=== PATIENT | male | born 1990 | race American Indian/Alaskan Native ===

== ENCOUNTER 2018-11-13 14:41 | Inpatient (IN) | payer MEDICARE ==
[2018-11-13 21:05] LABS: Hemoglobin 6.7 gm/dl (11.8-15.2); Mean Corpuscular HGB Conc 35 % (32-34); Mean Corpuscular Volume 90 fl (84-94); Red Blood Count 2.13 M/mm3 (3.65-5.03)
[2018-11-13 21:10] LABS: Hematocrit 20.1 % (35.5-45.6); Platelet Count 518 K/mm3 (140-440); Red Cell Distribution Width 26.8 % (13.2-15.2)
[2018-11-13] MEDS: MORPHINE IV SCH (21:21)
[2018-11-13 21:27] LABS: % Iron Saturation 43.17 %; Alanine Aminotransferase 12 units/L (7-56); Albumin 4.3 g/dL (3.9-5); BUN/Creatinine Ratio 24; Blood Urea Nitrogen 17 mg/dL (9-20); Calcium 8.5 mg/dL (8.4-10.2); Hemolysis Index 39; Iron 98 ug/dL (49-181); Total Iron Binding Capacity 227 mcg/dL (250-450)
[2018-11-13] MEDS: D5NS 0.2% 1,000 ML IV SCH (22:31)
[2018-11-13 22:44] LABS: Band Neutrophils # (Manual) 0.3 K/mm3; Total Cells Counted 100
[2018-11-13 22:45] LABS: Anisocytosis 3+; Hypochromasia Few; Ovalocytes Few; Sickle Cells 2+; Target Cells 1+
[2018-11-13 22:46] LABS: Platelet Estimate Appears Increased
[2018-11-13] MEDS ORDERED: ZOFRAN IV PRN (23:57)
[2018-11-14] MEDS: MORPHINE IV SCH ×6 (00:08→12:39)
[2018-11-14] MEDS: BENADRYL IV PRN ×2 (00:17→06:37)
[2018-11-14] MEDS: D5NS 0.2% 1,000 ML IV SCH ×2 (04:01→09:33)
[2018-11-14] MEDS ORDERED: TORADOL IV ONE (11:16)
[2018-11-14] MEDS ORDERED: FOLVITE PO SCH (12:00)
[2018-11-14] MEDS ORDERED: MS CONTIN ER PO SCH (12:00)
[2018-11-14] MEDS ORDERED: HYDREA PO SCH (12:00)
[2018-11-14 12:30] VITALS: BP 113/47
--- NOTE | 2018-11-14 14:09 | History and Physical Report ---
History of Present Illness Date of examination: 11/13/18 Date of admission: 11/13/18 19:30 Chief complaint: Sickel cell pain crisis. History of present illness: Patient was seen in the office, examined, and admitted directly into the hospital for sxs control, and management. He was hydrated, and given some morphine, and toradol, and anti emetic. re-examined, he states feels better, but wants to either go home ,or/and go to [facility] later if he wishes. I have encouraged him to stay, and get at least one unit of PRBC, for Hgb of 6.7, but he declined, and stuck to his decision to leave, despite the possible danger clinically with such a low level of blood in lite of Sickel cell crisis. Past History Past Medical History: anemia Social history: no significant social history, lives with family Medications and Allergies Allergies Allergy/AdvReac Type Severity Reaction Status Date / Time ceftriaxone [From Rocephin] AdvReac Anaphylaxis Verified 11/13/18 15:18 Home Medications Medication Instructions Recorded Confirmed Last Taken Type Folic Acid 1 tab PO DAILY 11/14/18 11/14/18 11/14/18 History Hydrea 2 tab PO DAILY 11/14/18 11/14/18 11/14/18 History Ms Contin 30 mg PO DAILY 11/14/18 11/14/18 11/10/18 History oxyCODONE 10 mg PO Q6H PRN 11/14/18 11/14/18 11/12/18 History Active Meds: Active Medications Diphenhydramine HCl (Benadryl) 0 mg IV Q4H PRN PRN Reason: Itching Last Admin: 11/14/18 06:37 Dose: 12.5 mg Documented by: Folic Acid (Folvite) 1 mg PO QDAY [facility] Last Admin: 11/14/18 12:39 Dose: 1 mg Documented by: Hydroxyurea (Hydrea) 1,000 mg PO QDAY [facility] Dextrose/Sodium Chloride (D5ns 0.2%) 1,000 mls @ 175 mls/hr IV DIRECT ILDA Last Admin: 11/14/18 09:33 Dose: 175 mls/hr Documented by: Morphine Sulfate (Morphine) 4 mg IV Q3H [facility] Stop: 11/14/18 16:31 Last Admin: 11/14/18 12:39 Dose: 4 mg Documented by: Morphine Sulfate (Morphine) 4 mg IV Q4H PRN PRN Reason: Pain , Severe (7-10) Morphine Sulfate (Ms Contin Er) 30 mg PO DAILY ILDA Ondansetron HCl (Zofran) 4 mg IV Q8H PRN PRN Reason: Nausea And Vomiting Review of Systems Constitutional: chronic pain Musculoskeletal: low back pain Exam - Constitutional Vitals: Temp Pulse Resp BP Pulse Ox 97.5 F L 58 L 20 113/47 97 11/14/18 11:29 11/14/18 11:29 11/14/18 11:29 11/14/18 11:29 11/14/18 11:29 General appearance: Present: mild distress, well-nourished - EENT Eyes: Present: PERRL ENT: hearing intact, clear oral mucosa - Neck Neck: Present: supple, normal ROM - Respiratory Respiratory effort: normal Respiratory: bilateral: CTA - Cardiovascular Heart Sounds: Present: S1 & S2. Absent: rub, click - Extremities Extremities: pulses symmetrical, No edema Peripheral Pulses: within normal limits - Abdominal General gastrointestinal: Present: soft, non-tender, non-distended, normal bowel sounds Male genitourinary: Present: deferred - Rectal Rectal Exam: deferred - Integumentary Integumentary: Present: clear, warm, dry - Musculoskeletal Musculoskeletal: gait normal, strength equal bilaterally - Psychiatric Psychiatric: appropriate mood/affect, intact judgment & insight - Neurologic Neurologic: CNII-XII intact, moves all extremities Results - Labs CBC & Chem 7: 11/13/18 20:40 11/13/18 20:40 Labs: Abnormal lab results 11/13/18 11/13/18 11/13/18 Range/Units 20:40 20:40 20:40 WBC 15.2 H (4.5-11.0) K/mm3 RBC 2.13 L (3.65-5.03) M/mm3 Hgb 6.7 L (11.8-15.2) gm/dl Hct 20.1 L (35.5-45.6) % MCHC 35 H (32-34) % RDW 26.8 H (13.2-15.2) % Plt Count 518 H (140-440) K/mm3 Eosinophils % (Manual) 6.0 H (0.0-4.3) % Nucleated RBC % 2.0 H (0.0-0.9) % Seg Neutrophils # Man 9.6 H (1.8-7.7) K/mm3 Eosinophils # (Manual) 0.9 H (0.0-0.4) K/mm3 Basophils # (Manual) 0.2 H (0.0-0.1) K/mm3 Percent Retic 15.52 H (0.78-2.58) % Carbon Dioxide 20 L (22-30) mmol/L Creatinine 0.7 L (0.8-1.5) mg/dL Glucose 103 H (75-100) mg/dL TIBC 227 L (250-450) mcg/dL Transferrin 179 L (180-329) mg/dl Total Bilirubin 4.60 H (0.1-1.2) mg/dL AST 56 H (5-40) units/L Assessment and Plan - Patient Problems (1) Acute sickle cell crisis Current Visit: Yes Status: Acute Plan to address problem: Pain control. (2) Anemia Current Visit: Yes Status: Acute Plan to address problem: will need replacement transfusion. (3) Dehydration Current Visit: Yes Status: Acute Plan to address problem: Hydration. (4) Leukocytosis Current Visit: Yes Status: Acute Plan to address problem: will need w/up.with cultures.
--- NOTE | 2018-11-14 14:19 | Discharge Summary ---
Providers - Providers Date of Admission: 11/13/18 19:30 Date of discharge: 11/14/18 Attending physician: SHELBY SPIVEY Primary care physician: SHELBY SPIVEY Hospitalization Reason for admission: Sickel pain crisis. Condition: Fair Hospital course: Patient was admitted 24 hrs ago, treated as per protocol, and as clinically needed, as far as patient would allow. He is asking to be discharged today. Disposition: DC- TO HOME OR SELFCARE - Discharge Diagnoses (1) Acute sickle cell crisis Status: Acute (2) Anemia Status: Acute (3) Dehydration Status: Acute (4) Leukocytosis Status: Acute Core Measure Documentation - Palliative Care Palliative Care/ Comfort Measures: Not Applicable - Core Measures Any of the following diagnoses?: none Exam - Constitutional Vitals: Temp Pulse Resp BP Pulse Ox 97.5 F L 58 L 20 113/47 97 11/14/18 11:29 11/14/18 11:29 11/14/18 11:29 11/14/18 11:29 11/14/18 11:29 General appearance: Present: mild distress, well-nourished - EENT Eyes: Present: PERRL ENT: hearing intact, clear oral mucosa - Neck Neck: Present: supple, normal ROM - Respiratory Respiratory effort: normal Respiratory: bilateral: CTA - Cardiovascular Heart Sounds: Present: S1 & S2. Absent: rub, click - Extremities Extremities: pulses symmetrical, No edema Peripheral Pulses: within normal limits - Abdominal General gastrointestinal: Present: soft, non-tender, non-distended, normal bowel sounds Male genitourinary: Present: deferred - Rectal Rectal Exam: deferred - Integumentary Integumentary: Present: clear, warm, dry - Musculoskeletal Musculoskeletal: gait normal, strength equal bilaterally - Psychiatric Psychiatric: appropriate mood/affect, intact judgment & insight - Neurologic Neurologic: CNII-XII intact, moves all extremities Plan Activity: no restrictions Diet: regular Follow up with: SHELBY SPIVEY DO [Primary Care Provider] - 7 Days
[2018-11-14] MEDS ORDERED: MORPHINE IV PRN (17:03)
== END 2018-11-14 14:40 | disposition home or self-care (01) | DRG 812 ==
LOC: UNDOADMIN 14:41 → 3A 14:41
PROVIDERS: ADMIT Internal Medicine Hematology & Oncology; ATTEND Internal Medicine Hematology & Oncology
DX: D57.00 Hb-SS disease with crisis, unspecified (principal); E86.0 Dehydration; D72.829 Elevated white blood cell count, unspecified
CPT/HCPCS: 36415; 80053; 83550; 85007; 85025; 85045; G0378; J1200; J1885; J2270

== ENCOUNTER 2019-10-22 11:16 | Inpatient (IN) | payer MEDICARE ==
[2019-10-22] MEDS ORDERED: HYDROmorphone 1 MG/1 ML INJ IV PRN (11:50)
[2019-10-22] MEDS ORDERED: oxyCODONE /ACETAMINOPHEN 5-325MG TAB PO PRN ×2 (12:12→21:15)
[2019-10-22 13:32] LABS: Mean Corpuscular HGB Conc 37 % (32-34); Mean Corpuscular Volume 81 fl (84-94); Platelet Count 581 K/mm3 (140-440); Red Blood Count 1.91 M/mm3 (3.65-5.03)
[2019-10-22 13:43] LABS: Hemoglobin 5.7 gm/dl (11.8-15.2)
[2019-10-22 13:44] LABS: Hematocrit 15.5 % (35.5-45.6); Red Cell Distribution Width 20.7 % (13.2-15.2)
[2019-10-22 13:49] LABS: Alanine Aminotransferase 75 units/L (7-56); Albumin 4.7 g/dL (3.9-5); BUN/Creatinine Ratio 32; Blood Urea Nitrogen 29 mg/dL (9-20); Calcium 8.7 mg/dL (8.4-10.2); Hemolysis Index 27
--- NOTE | 2019-10-22 14:17 | XRay Report ---
CHEST 1 VIEW INDICATION / CLINICAL INFORMATION: COUGH. COMPARISON: None available. FINDINGS: SUPPORT DEVICES: None. HEART / MEDIASTINUM: No significant abnormality. LUNGS / PLEURA: No significant pulmonary or pleural abnormality.. No pneumothorax. ADDITIONAL FINDINGS: There is diffuse sclerotic change in the imaged skeleton this includes the ribs, humeri, clavicles and scapula. There is degenerative change in the shoulders. IMPRESSION: 1. There is diffuse sclerotic change in the imaged skeleton. No acute pulmonary disease is seen. Signer Name: Murphy Melo MD Signed: 10/22/2019 2:12 PM Workstation Name: [id number]
[2019-10-22 14:21] LABS: Total Cells Counted 100
[2019-10-22 14:22] LABS: Anisocytosis 1+; Band Neutrophils # (Manual) 0.6 K/mm3; Basophils % (Manual) 0 % (0.0-1.8); Eosinophils % (Manual) 0 % (0.0-4.3); Hypochromasia 1+; Sickle Cells 2+; Target Cells 1+
[2019-10-22 14:23] LABS: Ovalocytes Few; Platelet Estimate Consistent w Auto
[2019-10-22] MEDS ORDERED: SODIUM CHLORIDE 0.9% 500 ML 500 ML IV SCH (14:28)
[2019-10-22] MEDS ORDERED: SODIUM POLYSTYRENE 15 GM/60 ML ORAL LIQD PO STA (14:42)
[2019-10-22] MEDS: MORPHINE 4 MG/1 ML INJ IV PRN ×4 (14:43→21:51)
[2019-10-22] MEDS: D5W/0.2% NACL 1,000 ML IV SCH ×2 (14:48→20:24)
[2019-10-22] MEDS ORDERED: DEXTROSE 50% IN WATER (25GM) 50 ML SYRINGE IV ONE (15:24)
[2019-10-22] MEDS ORDERED: INSULIN REGULAR, HUMAN 100 UNITS/1 ML IV ONE (15:26)
[2019-10-22] MEDS: diphenhydrAMINE 50 MG/ML VIAL IV PRN ×3 (15:41→21:46)
[2019-10-22] MEDS: KETOROLAC 30 MG/1 ML INJ IV SCH ×2 (18:39→23:45)
--- NOTE | 2019-10-22 21:24 | History and Physical Report ---
History of Present Illness Date of examination: 10/22/19 Date of admission: 10/22/19 12:32 Chief complaint: Diffuse joit pain/generalized fatigue. History of present illness: Patient presented to the office, with CC of diffuse joint pain, unable , to control with his home meds. He was examined, and admitted to the hospital, for sxs management, and control. Past History Past Medical History: anemia Social history: single, lives with family Medications and Allergies Allergies Allergy/AdvReac Type Severity Reaction Status Date / Time ceftriaxone [From Rocephin] AdvReac Anaphylaxis Verified 11/13/18 15:18 Home Medications Medication Instructions Recorded Confirmed Last Taken Type Folic Acid 1 tab PO DAILY 11/14/18 10/22/19 11/14/18 History Hydrea 2 tab PO DAILY 11/14/18 10/22/19 11/14/18 History Ms Contin 30 mg PO DAILY 11/14/18 10/22/19 11/10/18 History oxyCODONE 10 mg PO Q6H PRN 11/14/18 10/22/19 11/12/18 History Active Meds: Active Medications Diphenhydramine HCl (Benadryl) 12.5 mg IV Q3H PRN PRN Reason: Itching Last Admin: 10/22/19 18:39 Dose: 12.5 mg Documented by: Folic Acid (Folvite) 1 mg PO QDAY [facility] Dextrose/Sodium Chloride (D5ns 0.2%) 1,000 mls @ 250 mls/hr IV DIRECT ILDA Last Admin: 10/22/19 20:24 Dose: 250 mls/hr Documented by: Sodium Chloride (Nacl 0.9% 500 Ml) 500 mls @ 0 mls/hr IV ONCE ILDA Stop: 10/22/19 23:00 Ketorolac Tromethamine (Toradol) 30 mg IV Q6HR ILDA Stop: 10/27/19 06:01 Last Admin: 10/22/19 18:39 Dose: 30 mg Documented by: Morphine Sulfate (Morphine) 6 mg IV Q3H PRN PRN Reason: Pain , Severe (7-10) Oxycodone/Acetaminophen (Percocet 5/325) 2 tab PO Q8H PRN PRN Reason: Pain, Moderate (4-6) Polyethylene Glycol (Miralax 3350) 17 gm PO BID ILDA Sodium Chloride (Sodium Chloride Flush Syringe 10 Ml) 10 ml IV BID ILDA Sodium Chloride (Sodium Chloride Flush Syringe 10 Ml) 10 ml IV PRN PRN PRN Reason: LINE FLUSH Review of Systems Constitutional: chronic pain Psychiatric: change in libido Exam - Constitutional Vitals: Temp Pulse Resp BP Pulse Ox 98.7 F 89 18 119/56 89 10/22/19 18:15 10/22/19 18:37 10/22/19 18:37 10/22/19 18:37 10/22/19 18:37 General appearance: Present: mild distress, well-nourished - EENT Eyes: Present: PERRL ENT: hearing intact, clear oral mucosa - Neck Neck: Present: supple, normal ROM - Respiratory Respiratory effort: normal Respiratory: bilateral: CTA - Cardiovascular Heart Sounds: Present: S1 & S2. Absent: rub, click - Extremities Extremities: pulses symmetrical, No edema Peripheral Pulses: within normal limits - Abdominal General gastrointestinal: Present: soft, non-tender, non-distended, normal bowel sounds Male genitourinary: Present: deferred - Rectal Rectal Exam: deferred - Integumentary Integumentary: Present: clear, warm, dry - Musculoskeletal Musculoskeletal: gait normal, strength equal bilaterally - Psychiatric Psychiatric: appropriate mood/affect, intact judgment & insight - Neurologic Neurologic: CNII-XII intact, moves all extremities Results - Labs CBC & Chem 7: 10/22/19 13:01 10/22/19 15:22 Labs: Abnormal lab results 10/22/19 10/22/19 10/22/19 Range/Units 13:01 13:01 13:01 WBC 14.7 H (4.5-11.0) K/mm3 RBC 1.91 L (3.65-5.03) M/mm3 Hgb 5.7 L* (11.8-15.2) gm/dl Hct 15.5 L* (35.5-45.6) % MCV 81 L (84-94) fl MCHC 37 H (32-34) % RDW 20.7 H (13.2-15.2) % Plt Count 581 H (140-440) K/mm3 Seg Neuts % (Manual) 79.0 H (40.0-70.0) % Lymphocytes % (Manual) 12.0 L (13.4-35.0) % Seg Neutrophils # Man 11.6 H (1.8-7.7) K/mm3 Percent Retic 2.99 H (0.78-2.58) % Sodium 135 L (137-145) mmol/L Potassium 6.8 H* (3.6-5.0) mmol/L Carbon Dioxide 15 L (22-30) mmol/L BUN 29 H (9-20) mg/dL Iron 46 L (49-181) ug/dL Ferritin (13.0-400.0) ng/mL Total Bilirubin 3.60 H (0.1-1.2) mg/dL AST 53 H (5-40) units/L ALT 75 H (7-56) units/L Alkaline Phosphatase 168 H (35-129) units/L Crossmatch 10/22/19 10/22/19 10/22/19 Range/Units 13:01 15:22 15:22 WBC (4.5-11.0) K/mm3 RBC (3.65-5.03) M/mm3 Hgb (11.8-15.2) gm/dl Hct (35.5-45.6) % MCV (84-94) fl MCHC (32-34) % RDW (13.2-15.2) % Plt Count (140-440) K/mm3 Seg Neuts % (Manual) (40.0-70.0) % Lymphocytes % (Manual) (13.4-35.0) % Seg Neutrophils # Man (1.8-7.7) K/mm3 Percent Retic (0.78-2.58) % Sodium (137-145) mmol/L Potassium 6.7 H* (3.6-5.0) mmol/L Carbon Dioxide (22-30) mmol/L BUN (9-20) mg/dL Iron (49-181) ug/dL Ferritin 1669.0 H (13.0-400.0) ng/mL Total Bilirubin (0.1-1.2) mg/dL AST (5-40) units/L ALT (7-56) units/L Alkaline Phosphatase (35-129) units/L Crossmatch See Detail Assessment and Plan - Patient Problems (1) Acute sickle cell crisis Current Visit: No Status: Acute Plan to address problem: supportive care. (2) Anemia Current Visit: No Status: Acute Plan to address problem: blood replacement transfusion. (3) Dehydration Current Visit: No Status: Acute Plan to address problem: hydration. (4) Leukocytosis Current Visit: No Status: Acute Plan to address problem: will do culture, and if indicated, will do ABX.
[2019-10-22] MEDS: POLYETHYLENE GLYCOL 3350 17 GM POWDER PO SCH ×2 (22:00→22:21)
[2019-10-23] MEDS: MORPHINE 4 MG/1 ML INJ IV PRN ×5 (01:11→14:08)
[2019-10-23] MEDS: diphenhydrAMINE 50 MG/ML VIAL IV PRN ×3 (04:40→14:07)
[2019-10-23] MEDS: KETOROLAC 30 MG/1 ML INJ IV SCH (05:47)
[2019-10-23] MEDS: D5W/0.2% NACL 1,000 ML IV SCH ×2 (05:49→10:30)
[2019-10-23 07:06] LABS: Hemoglobin 6.8 gm/dl (11.8-15.2); Mean Corpuscular HGB Conc 36 % (32-34); Mean Corpuscular Volume 82 fl (84-94); Red Blood Count 2.33 M/mm3 (3.65-5.03); Red Cell Distribution Width 19.9 % (13.2-15.2)
[2019-10-23 07:13] LABS: Hematocrit 19.1 % (35.5-45.6)
[2019-10-23 07:32] LABS: BUN/Creatinine Ratio 35; Blood Urea Nitrogen 28 mg/dL (9-20); Hemolysis Index 14; Iron 61 ug/dL (49-181); Total Iron Binding Capacity 172 mcg/dL (250-450)
[2019-10-23] MEDS ORDERED: FOLIC ACID 1 MG TAB PO SCH (10:00)
[2019-10-23 10:19] LABS: Band Neutrophils # (Manual) 0.1 K/mm3; Total Cells Counted 100
[2019-10-23 10:20] LABS: Giant Platelets Few; Platelet Estimate Consistent w Auto; Sickle Cells 3+; Target Cells 2+
[2019-10-23] MEDS ORDERED: SODIUM CHLORIDE 0.9% 500 ML 500 ML ONE (10:46)
[2019-10-23] MEDS: POLYETHYLENE GLYCOL 3350 17 GM POWDER PO SCH (11:22)
[2019-10-23 12:51] LABS: Platelet Count 547 K/mm3 (140-440)
[2019-10-23 15:53] LABS: Hematocrit 21.6 % (35.5-45.6); Hemoglobin 7.5 gm/dl (11.8-15.2)
[2019-10-23 16:38] VITALS: BP 123/73
--- NOTE | 2019-10-23 17:43 | Discharge Summary ---
Providers - Providers Date of Admission: 10/22/19 12:32 Date of discharge: 10/23/19 Attending physician: SHELBY SPIVEY Primary care physician: SHELBY SPIVEY Hospitalization Reason for admission: SCD/symptomatic anemia.pain crisis. Condition: Stable Hospital course: Patient presented to the office, with pain crisis, and admitted to the hospital, for sxs management, and control.. Patient was transfused with total of 3units of PRBcs, and tolerated it well. Hgb 5.3 to 7.6., and pain better control, and will d/c home today. Disposition: DC-01 TO HOME OR SELFCARE - Discharge Diagnoses (1) Acute sickle cell crisis Status: Resolved (2) Anemia Status: Chronic (3) Dehydration Status: Resolved (4) Leukocytosis Status: Resolved Core Measure Documentation - Palliative Care Palliative Care/ Comfort Measures: Not Applicable - Core Measures Any of the following diagnoses?: none Exam - Constitutional Vitals: Temp Pulse Resp BP Pulse Ox 98.3 F 67 18 123/73 95 10/23/19 16:15 10/23/19 16:15 10/23/19 16:15 10/23/19 16:15 10/23/19 16:15 General appearance: Present: no acute distress, well-nourished - EENT Eyes: Present: PERRL ENT: hearing intact, clear oral mucosa - Neck Neck: Present: supple, normal ROM - Respiratory Respiratory effort: normal Respiratory: bilateral: CTA - Cardiovascular Heart Sounds: Present: S1 & S2. Absent: rub, click - Extremities Extremities: pulses symmetrical, No edema Peripheral Pulses: within normal limits - Abdominal General gastrointestinal: Present: soft, non-tender, non-distended, normal bowel sounds Male genitourinary: Present: deferred - Rectal Rectal Exam: deferred - Integumentary Integumentary: Present: clear, warm, dry - Musculoskeletal Musculoskeletal: gait normal, strength equal bilaterally - Psychiatric Psychiatric: appropriate mood/affect, intact judgment & insight - Neurologic Neurologic: CNII-XII intact, moves all extremities Plan Activity: no restrictions Diet: regular, low carbohydrate Follow up with: SHELBY SPIVEY DO [Primary Care Provider] - 7 Days
== END 2019-10-23 18:15 | disposition home or self-care (01) | DRG 812 ==
LOC: 3A 11:16 → UNDOADMIN 11:16 → 3A 12:32
PROVIDERS: ADMIT Internal Medicine Hematology & Oncology; ATTEND Internal Medicine Hematology & Oncology
PROC: 30233N1 Transfusion of Nonautologous Red Blood Cells into Peripheral Vein, Percutaneous Approach (ICD-10-PCS; principal; 2019-10-22)
DX: D57.00 Hb-SS disease with crisis, unspecified (principal); E86.0 Dehydration; D64.9 Anemia, unspecified; D72.829 Elevated white blood cell count, unspecified; Z79.899 Other long term (current) drug therapy
CPT/HCPCS: 36415; 71046; 80048; 80053; 82728; 83540; 83550; 84132; 85007; 85014; 85018; 85025; 85045; 86850; 86900; 86901; 86920; 87116; 93005; 93010; 94760; G0378; J1200; J1815; J1885; J2270; J7040; P9016